=== PATIENT | male | born 1960 | race American Indian/Alaskan Native ===

== ENCOUNTER 2018-06-17 15:50 | Inpatient (IN) | payer BC, MEDICAID, MEDICARE ==
--- NOTE | 2018-06-17 16:22 | Emergency Department Report ---
ED Chest Pain HPI - General Chief Complaint: Chest Pain Stated Complaint: HEART PROBLEMS/CHEST PAIN Time Seen by Provider: 06/17/18 16:10 Source: patient Mode of arrival: Ambulatory Limitations: No Limitations - History of Present Illness Initial Comments: 57-year-old male with history of CAD, CHF presents with chest pain. Patient states he was riding in the car and had sudden onset of left-sided sharp chest pain. The pain is nonradiating, reports associated diaphoresis and shortness of breath. Denies nausea or vomiting, leg pain. Patient reports mild pedal edema. States he is compliant with his medications. Patient had last stent placed in July of this year, reports hospitalizations throughout the year for what sounds like exacerbations of congestive heart failure. Patient states he has mostly been in the hospital in [place], although he lives here in [place]. MD Complaint: chest pain -: hour(s) (1) Onset: during rest Pain Location: left chest Pain Radiation: none Severity: moderate Quality: sharp Consistency: constant Improves With: nothing Worsens With: nothing re: diaphoresis, dyspnea. denies: nausea, vomting Other Symptoms: denies: leg swelling Treatments Prior to Arrival: none - Related Data Home Medications Medication Instructions Recorded Confirmed Last Taken Clopidogrel [Plavix] 75 mg PO QDAY 03/05/15 03/14/15 03/07/15 Previous Rx's Medication Instructions Recorded Last Taken Type Carvedilol [Coreg] 25 mg PO BID #60 tablet 07/05/14 03/12/15 07:00 Rx Valsartan [Diovan] 160 mg PO BID #60 tablet 07/05/14 03/07/15 Rx oxyCODONE /ACETAMINOPHEN [Percocet 1 - 2 tab PO Q6HR PRN #20 tablet 08/26/14 08/27/14 Rx 5/325 mg] Aspirin EC [Aspirin Enteric Coated 325 mg PO QDAY tablet 03/15/15 Unknown Rx TAB] Clopidogrel [Plavix] 75 mg PO QDAY tablet 03/15/15 Unknown Rx Ezetimibe [Zetia] 10 mg PO QHS #30 tablet NS 03/15/15 Unknown Rx ISOSORBIDE MONOnitrate [Imdur ER] 30 mg PO QDAY #30 tablet NS 03/15/15 Unknown Rx Valsartan [Diovan] 160 mg PO DAILY tablet 03/15/15 Unknown Rx Allergies Allergy/AdvReac Type Severity Reaction Status Date / Time lisinopril Allergy Angioedema Verified 06/17/18 16:06 lovastatin AdvReac Swelling Verified 03/12/15 12:43 simvastatin AdvReac Swelling Verified 03/12/15 12:44 Heart Score - HEART Score History: Moderately suspicious EKG: Non-specific Age: 45-65 Risk factors: > 3 risk factors or hx of atherosclerotic disease Troponin: 1-3x normal limit HEART Score: 6 ED Review of Systems ROS: Stated complaint: HEART PROBLEMS/CHEST PAIN Other details as noted in HPI Comment: All other systems reviewed and negative Constitutional: denies: chills, fever Respiratory: shortness of breath Cardiovascular: chest pain Gastrointestinal: denies: nausea, vomiting Musculoskeletal: other (denies leg pain or swelling) ED Past Medical Hx - Past Medical History Previous Medical History?: Yes Hx Hypertension: Yes (2007 DR COLUMBA GRAHAM/PCP) Hx Heart Attack/AMI: Yes (X5) Hx Congestive Heart Failure: No Hx Diabetes: No Hx Renal Disease: No Hx Seizures: No Hx Asthma: No Hx COPD: No Hx HIV: No Additional medical history: High cholesterol. CAD - Surgical History Past Surgical History?: Yes Hx Coronary Stent: Yes (X5) - Social History Smoking Status: Never Smoker Substance Use Type: None - Medications Home Medications: Home Medications Medication Instructions Recorded Confirmed Last Taken Type Carvedilol [Coreg] 25 mg PO BID #60 tablet 07/05/14 03/14/15 03/12/15 07:00 Rx Valsartan [Diovan] 160 mg PO BID #60 tablet 07/05/14 03/14/15 03/07/15 Rx oxyCODONE /ACETAMINOPHEN [Percocet 1 - 2 tab PO Q6HR PRN #20 tablet 08/26/14 03/14/15 08/27/14 Rx 5/325 mg] Clopidogrel [Plavix] 75 mg PO QDAY 03/05/15 03/14/15 03/07/15 History Aspirin EC [Aspirin Enteric Coated 325 mg PO QDAY tablet 03/15/15 Unknown Rx TAB] Clopidogrel [Plavix] 75 mg PO QDAY tablet 03/15/15 Unknown Rx Ezetimibe [Zetia] 10 mg PO QHS #30 tablet NS 03/15/15 Unknown Rx ISOSORBIDE MONOnitrate [Imdur ER] 30 mg PO QDAY #30 tablet NS 03/15/15 Unknown Rx Valsartan [Diovan] 160 mg PO DAILY tablet 03/15/15 Unknown Rx ED Physical Exam - General Limitations: No Limitations General appearance: alert, in no apparent distress - Head Head exam: Present: atraumatic, normocephalic - Eye Eye exam: Present: normal appearance - ENT ENT exam: Present: mucous membranes moist - Neck Neck exam: Present: normal inspection - Respiratory Respiratory exam: Present: normal lung sounds bilaterally. Absent: respiratory distress - Cardiovascular Cardiovascular Exam: Present: normal rhythm, tachycardia - GI/Abdominal GI/Abdominal exam: Present: soft. Absent: distended, tenderness - Extremities Exam Extremities exam: Present: other (no lower extremity edema). Absent: calf tenderness - Neurological Exam Neurological exam: Present: alert, oriented X3 - Psychiatric Psychiatric exam: Present: normal affect, normal mood - Skin Skin exam: Present: warm, dry, intact, normal color ED Course Vital Signs 06/17/18 06/17/18 06/17/18 16:07 16:12 16:15 Temperature 97.6 F Pulse Rate 139 H 135 H Respiratory 22 20 21 Rate Blood Pressure 164/121 166/130 Blood Pressure [Left] O2 Sat by Pulse 97 98 Oximetry 06/17/18 06/17/18 06/17/18 16:24 16:25 16:26 Temperature Pulse Rate 133 H 133 H Respiratory 17 20 24 Rate Blood Pressure 166/130 166/130 Blood Pressure [Left] O2 Sat by Pulse Oximetry 06/17/18 06/17/18 06/17/18 16:27 16:28 16:29 Temperature Pulse Rate 133 H 134 H 134 H Respiratory 20 20 Rate Blood Pressure 166/130 166/130 151/118 Blood Pressure [Left] O2 Sat by Pulse Oximetry 06/17/18 06/17/18 06/17/18 16:30 16:32 16:34 Temperature Pulse Rate 135 H 137 H 137 H Respiratory 22 20 19 Rate Blood Pressure 151/118 151/118 151/118 Blood Pressure [Left] O2 Sat by Pulse Oximetry 06/17/18 06/17/18 06/17/18 16:35 16:36 16:37 Temperature Pulse Rate 136 H 138 H 135 H Respiratory 23 21 Rate Blood Pressure 131/91 131/91 131/91 Blood Pressure [Left] O2 Sat by Pulse Oximetry 06/17/18 06/17/18 06/17/18 16:38 16:40 16:42 Temperature Pulse Rate 136 H 139 H 139 H Respiratory 22 18 21 Rate Blood Pressure 131/91 131/91 131/91 Blood Pressure [Left] O2 Sat by Pulse Oximetry 06/17/18 06/17/18 06/17/18 16:44 16:45 16:46 Temperature Pulse Rate 140 H 138 H 138 H Respiratory 19 24 19 Rate Blood Pressure 131/91 140/92 140/92 Blood Pressure [Left] O2 Sat by Pulse Oximetry 06/17/18 06/17/18 06/17/18 17:00 17:15 17:52 Temperature Pulse Rate 133 H 81 88 Respiratory 15 13 Rate Blood Pressure 140/99 142/101 140/99 Blood Pressure [Left] O2 Sat by Pulse 98 100 99 Oximetry 06/17/18 06/17/18 06/17/18 18:00 18:15 18:30 Temperature Pulse Rate 86 86 87 Respiratory 25 H 22 17 Rate Blood Pressure 148/109 147/109 156/115 Blood Pressure [Left] O2 Sat by Pulse 100 99 100 Oximetry 06/17/18 06/17/18 18:45 19:15 Temperature 97.8 F Pulse Rate 85 86 Respiratory 22 18 Rate Blood Pressure 157/115 154/114 Blood Pressure 154/114 [Left] O2 Sat by Pulse 100 100 Oximetry ALICE score - Alice Score Age > 65: (0) No Aspirin use within the Past 7 Days: (1) Yes 3 or more CAD Risk Factors: (1) Yes 2 or more Angina events in past 24 hrs: (1) Yes Known CAD with more than 50% Stenosis: (1) Yes Elevated Cardiac Markers: (0) No ST Deviation Greater than 0.5mm: (0) No ALICE Score: 4 ED Medical Decision Making - Lab Data Result diagrams: 06/17/18 16:20 06/17/18 16:20 - EKG Data EKG shows normal: sinus rhythm, axis, QRS complexes Rate: tachycardia - EKG Data When compared to previous EKG there are: no significant change (compared to 02/2015) Interpretation: LVH, other (prolonged QT, T wave inversions laterally) - Radiology Data Radiology results: report reviewed, image reviewed - Medical Decision Making 57-year-old male with history of CAD presented to ED with chest pain. Initially tachycardic into the 130s. EKG did not show any evidence of STEMI. Patient had T-wave inversions in lateral leads, which is consistent with past EKGs. Troponin normal. Due to chest pain and tachycardia, CTA was obtained, will wish to not show any sign of PE or aortic pathology. Chest pain improved with sublingual nitroglycerin, heart rate also improved as well being given an small fluid bolus of 250 mL and small dose of morphine. Patient feeling much better at this time. Will admit for further chest pain workup to the hospitalist. - Differential Diagnosis ACS, PE, aortic dissection Critical care attestation.: If time is entered above; I have spent that time in minutes in the direct care of this critically ill patient, excluding procedure time. ED Disposition Clinical Impression: Chest pain, Unstable angina Disposition: OP ADMIT IP TO THIS HOSP Is pt being admited?: Yes Condition: Stable Time of Disposition: 18:22
[2018-06-17] MEDS ORDERED: ASPIRIN PO ONE (16:23)
[2018-06-17] MEDS: NITROSTAT SL PRN ×3 (16:27→16:37)
[2018-06-17] MEDS ORDERED: NACL 0.9% 250ML 250 ML ONE (16:41)
[2018-06-17] MEDS ORDERED: NACL 0.9% 500 ML 250 ML IV ONE (16:43)
[2018-06-17 16:56] LABS: Basophils # (Auto) 0.1 K/mm3 (0.0-0.1); Basophils % (Auto) 1.5 % (0.0-1.8); Eosinophils # (Auto) 0.1 K/mm3 (0.0-0.4); Eosinophils % (Auto) 1.6 % (0.0-4.3); Lymphocytes # (Auto) 2.1 K/mm3 (1.2-5.4); Mean Corpuscular HGB Conc 31 % (32-34); Monocytes # (Auto) 0.7 K/mm3 (0.0-0.8); Platelet Count 309 K/mm3 (140-440); Red Blood Count 6.76 M/mm3 (3.65-5.03)
[2018-06-17 16:59] LABS: Hematocrit 41.9 % (35.5-45.6); Hemoglobin 12.8 gm/dl (11.8-15.2); Mean Corpuscular Hemoglobin 19 pg (28-32); Mean Corpuscular Volume 62 fl (84-94); Red Cell Distribution Width 21.5 % (13.2-15.2)
[2018-06-17] MEDS ORDERED: MORPHINE IV ONE (16:59)
[2018-06-17] MEDS ORDERED: MORPHINE ONE (16:59)
[2018-06-17 17:02] LABS: BUN/Creatinine Ratio 17; Blood Urea Nitrogen 19 mg/dL (9-20); Calcium 9.4 mg/dL (8.4-10.2); Hemolysis Index 26
[2018-06-17 17:06] LABS: INR 1.03 (0.87-1.13); Partial Thromboplastin Time 24.7 Sec. (24.2-36.6)
--- NOTE | 2018-06-17 17:07 | XRay Report ---
FINAL REPORT PROCEDURE: XR CHEST 1V AP TECHNIQUE: Chest radiograph anteroposterior view. CPT 41453 HISTORY: chest pain COMPARISON: No prior studies are available for comparison. FINDINGS: Heart: Cardiac size is mildly enlarged. Mediastinum/Vessels: Mild degree pulmonary venous congestion is noted. Lungs/Pleural space: Lungs are hyperinflated. A hazy density is noted involving the right middle lobe obscuring the right cardiac border. There is blunting of right costophrenic angle. Bony thorax: No acute osseous abnormality. Life support devices: None. IMPRESSION: Mild degree pulmonary venous congestion Mild cardiomegaly Hazy density right middle lobe may represent a atelectasis versus scarring. A two view chest study is recommended to rule out any areas of consolidation. Blunting of right costophrenic angle may be secondary to minimal pleural effusion versus pleural scar ring. Comparison with any prior studies would be of help..
--- NOTE | 2018-06-17 18:15 | History and Physical Report ---
History of Present Illness Chief complaint: My chest hurts History of present illness: 57 YO Male with CAD S/P Stent placement, Systolic CHF(EF 20%), Obesity, HLD, NM, HTN presents to ED for evaluation. Pt states that he has experienced sudden onset pain localized to his left chest while riding in his car. Pt states that pain is 6/10, substernal, sharp, constant, nonradiating, nonradiating, associated with diaphoresis and shortness of breath, not worsened with exertion, not relieved with rest. Pt transported to [facility] care and evaluation. Pt seen and evaluated in ED and found to have symptoms consistent with ACS, as well as CHF Decompensation. Pt admitted to telemetry. Cardiology consulted in ED. Past History Past Medical History: acute NM, heart failure, hypertension, hyperlipidemia, other (Obesity) Past Surgical History: Other (Cardiac Stent) Social history: , lives with family. denies: smoking, alcohol abuse, prescription drug abuse Family history: CAD, hypertension Medications and Allergies Allergies Allergy/AdvReac Type Severity Reaction Status Date / Time lisinopril Allergy Angioedema Verified 06/17/18 16:06 lovastatin AdvReac Swelling Verified 03/12/15 12:43 simvastatin AdvReac Swelling Verified 03/12/15 12:44 Home Medications Medication Instructions Recorded Confirmed Last Taken Type Carvedilol [Coreg] 25 mg PO BID #60 tablet 07/05/14 03/14/15 03/12/15 07:00 Rx Valsartan [Diovan] 160 mg PO BID #60 tablet 07/05/14 03/14/15 03/07/15 Rx oxyCODONE /ACETAMINOPHEN [Percocet 1 - 2 tab PO Q6HR PRN #20 tablet 08/26/14 03/14/15 08/27/14 Rx 5/325 mg] Clopidogrel [Plavix] 75 mg PO QDAY 03/05/15 03/14/15 03/07/15 History Aspirin EC [Aspirin Enteric Coated 325 mg PO QDAY tablet 03/15/15 Unknown Rx TAB] Clopidogrel [Plavix] 75 mg PO QDAY tablet 03/15/15 Unknown Rx Ezetimibe [Zetia] 10 mg PO QHS #30 tablet NS 03/15/15 Unknown Rx ISOSORBIDE MONOnitrate [Imdur ER] 30 mg PO QDAY #30 tablet NS 03/15/15 Unknown Rx Valsartan [Diovan] 160 mg PO DAILY tablet 03/15/15 Unknown Rx Active Meds: Active Medications Nitroglycerin (Nitrostat) 0.4 mg SL .Q5MIN PRN PRN Reason: Chest Pain Last Admin: 06/17/18 16:37 Dose: 0.4 mg Documented by: Review of Systems Constitutional: no weight loss, no weight gain, no fever, no chills Ears, nose, mouth and throat: no ear pain, no ear discharge, no tinnitis, no decreased hearing, no nose pain, no nasal congestion, no nasal discharge Cardiovascular: chest pain Respiratory: no cough, no cough with sputum, no excessive sputum Gastrointestinal: no abdominal pain, no nausea, no diarrhea, no constipation, no change in bowel habits Genitourinary Male: no hematuria, no flank pain, no discharge, no urinary frequency Rectal: no pain, no incontinence, no bleeding Musculoskeletal: no neck stiffness, no neck pain, no shooting arm pain, no arm numbness/tingling, no low back pain, no shooting leg pain Integumentary: no rash, no pruritis, no redness, no sores, no wounds, no jaundice Neurological: no transient paralysis, no paralysis, no weakness, no numbness, no tingling, no seizures, no syncope, no tremors Psychiatric: no anxiety, no memory loss, no change in sleep habits, no sleep disturbances, no insomnia, no hypersomnia, no change in libido Endocrine: no cold intolerance, no heat intolerance, no polyphagia, no polydipsia, no polyuria, no nocturia, no excessive sweating Hematologic/Lymphatic: no easy bruising, no easy bleeding, no lymphadenopathy, no lymphedema Allergic/Immunologic: no urticaria, no allergic rhinitis, no wheezing, no persistent infections, no anaphylaxis Exam - Constitutional Vitals: Temp Pulse Resp BP Pulse Ox 97.6 F 86 25 H 148/109 100 06/17/18 16:07 06/17/18 18:00 06/17/18 18:00 06/17/18 18:00 06/17/18 18:00 General appearance: Present: mild distress - EENT Eyes: Present: PERRL ENT: hearing intact, clear oral mucosa - Neck Neck: Present: supple, normal ROM - Respiratory Respiratory effort: normal Respiratory: bilateral: CTA - Cardiovascular Heart Sounds: Present: S1 & S2. Absent: rub, click - Extremities Extremities: pulses symmetrical, No edema Peripheral Pulses: within normal limits - Abdominal General gastrointestinal: Present: soft, non-tender, non-distended, normal bowel sounds Male genitourinary: Present: normal - Integumentary Integumentary: Present: clear, warm, dry - Musculoskeletal Musculoskeletal: gait normal, strength equal bilaterally - Psychiatric Psychiatric: appropriate mood/affect, intact judgment & insight - Neurologic Neurologic: CNII-XII intact, moves all extremities Results - Labs CBC & Chem 7: 06/17/18 16:20 06/17/18 16:20 Labs: Abnormal lab results 06/17/18 06/17/18 06/17/18 Range/Units 16:20 16:20 16:20 RBC 6.76 H (3.65-5.03) M/mm3 MCV 62 L (84-94) fl MCH 19 L (28-32) pg MCHC 31 L (32-34) % RDW 21.5 H (13.2-15.2) % [place] % (Auto) 9.0 H (0.0-7.3) % Glucose 103 H (75-100) mg/dL NT-Pro-B Natriuret Pep 1598 H (0-900) pg/mL Assessment and Plan - Patient Problems (1) ACS (acute coronary syndrome) Current Visit: Yes Status: Acute Plan to address problem: Serial cardiac enzymes, EKG, telemetry, morphine, supplemental oxygen, nitro, aspirin, cardiology consulted, (2) CHF (congestive heart failure) Current Visit: Yes Status: Acute Qualifiers: Heart failure type: systolic Heart failure chronicity: acute on chronic Qualified Code(s): I50.23 - Acute on chronic systolic (congestive) heart failure Plan to address problem: Admit to telemetry, Echo, strict I/O, daily weight, monitor uop q shift, chext x ray, bnp, d dimer, supplemental oxygen, pulse oximetry, thyroid panel (3) Coronary artery disease Current Visit: No Status: Acute Qualifiers: Coronary Disease-Associated Artery/Lesion type: [place] artery Associated angina: with stable angina Plan to address problem: Admit to telemetry, DAPT, Risk factor reduction (4) DVT prophylaxis Current Visit: No Status: Acute Plan to address problem: SCD to BLE while in bed.
[2018-06-17] MEDS ORDERED: ZOFRAN IV PRN (18:27)
[2018-06-17] MEDS ORDERED: PROVENTIL IH PRN (18:27)
[2018-06-17] MEDS ORDERED: TYLENOL PO PRN (18:27)
[2018-06-17] MEDS ORDERED: BABY ASPIRIN PO STA (18:27)
[2018-06-17] MEDS ORDERED: SODIUM CHLORIDE FLUSH SYRINGE 10 ML IV PRN ×2 (18:27)
[2018-06-17] MEDS ORDERED: PERCOCET 5/325 PO PRN (18:29)
--- NOTE | 2018-06-17 18:41 | Cat Scan Report ---
FINAL REPORT EXAM: CT ANGIO CHEST HISTORY: chest pain TECHNIQUE: CT chest CT angiogram with reconstructions PRIORS: None. FINDINGS: There is no evidence of filling defect within the central pulmonary vasculature to suggest the presen ce of acute pulmonary embolus. No evidence of mediastinal pathologic lymph node enlargement Heart and great vessels are unremarkable. The aorta is normal in caliber. There is focal atelectasis at the right lung base and with areas of linear scarring present. No pleur al fluid collection seen. No acute pulmonary abnormality noted. Visualized portion of the upper abdomen demonstrates no acute change. IMPRESSION: Negative. No CT evidence of acute pulmonary embolus
[2018-06-17 19:22] LABS: Free T4 (Free Thyroxine) 1.07 ng/dL (0.76-1.46)
[2018-06-17 20:10] LABS: Chol/HDL Ratio 6.21 %
[2018-06-17] MEDS: COREG PO SCH (22:40)
[2018-06-17] MEDS: ZETIA PO SCH (22:40)
[2018-06-17] MEDS: SODIUM CHLORIDE FLUSH SYRINGE 10 ML IV SCH (22:41)
[2018-06-18] MEDS ORDERED: LASIX PO SCH (06:00)
[2018-06-18] MEDS: IMDUR PO SCH (09:16)
[2018-06-18] MEDS: COREG PO SCH ×2 (09:16→21:38)
[2018-06-18] MEDS: SODIUM CHLORIDE FLUSH SYRINGE 10 ML IV SCH ×2 (09:17→21:38)
[2018-06-18] MEDS: PLAVIX PO SCH (09:17)
[2018-06-18] MEDS ORDERED: ECOTRIN PO SCH (10:00)
[2018-06-18] MEDS ORDERED: AFLURIA QUAD 2018-2019 SYRINGE IM ONE (12:00)
--- NOTE | 2018-06-18 12:36 | Consultation ---
History of Present Illness Consult date: 06/18/18 Consult reason: chest pain History of present illness: The patient's a 57-year-old man with coronary artery disease. He has coronary stents in both the circumflex and right coronary arteries. Three years ago in February 2015, he suffered an acute inferior ST elevation myocardial infarction, immediately following elective left wrist surgery. Findings on cardiac catheterization was late stent thrombosis of a drug-eluting stent that had been implanted 2 years earlier. For the wrist surgery there was a temporary five-day interruption of his oral antiplatelet therapy. The patient did well with primary angioplasty and implantation of serial 3.0-3.5 mm bare metal stents. Since then, he has mostly lived in [place], [facility] that a year ago a right radial catheterization was performed that demonstrated no additional l esions, and in July of this year he also had a stress test that he reports was negative. He presents to the hospital now with nonexertional somewhat atypical chest pain, was seen in the emergency room and referred for admission. EKG is normal sinus rhythm with left ventricular hypertrophy and nonspecific ST and T-wave abnormalities. Troponin level is insignificant at 0.03. Chest x-ray was negative. Past History Past Medical History: acute MS, CAD, heart failure, hypertension, hyperlipidemia, other (Obesity) Past Surgical History: PTCA, Other (Cardiac Stent) Social history: , lives with family. denies: smoking, alcohol abuse, prescription drug abuse Family history: CAD, hypertension Medications and Allergies Allergies Allergy/AdvReac Type Severity Reaction Status Date / Time lisinopril Allergy Angioedema Verified 06/17/18 16:06 lovastatin AdvReac Swelling Verified 03/12/15 12:43 simvastatin AdvReac Swelling Verified 03/12/15 12:44 Home Medications Medication Instructions Recorded Confirmed Last Taken Type Carvedilol [Coreg] 25 mg PO BID #60 tablet 07/05/14 03/14/15 03/12/15 07:00 Rx Valsartan [Diovan] 160 mg PO BID #60 tablet 07/05/14 03/14/15 03/07/15 Rx oxyCODONE /ACETAMINOPHEN [Percocet 1 - 2 tab PO Q6HR PRN #20 tablet 08/26/14 03/14/15 08/27/14 Rx 5/325 mg] Clopidogrel [Plavix] 75 mg PO QDAY 03/05/15 03/14/1515 History Aspirin EC [Aspirin Enteric Coated 325 mg PO QDAY tablet 03/15/15 Unknown Rx TAB] Clopidogrel [Plavix] 75 mg PO QDAY tablet 03/15/15 Unknown Rx Ezetimibe [Zetia] 10 mg PO QHS #30 tablet NS 03/15/15 Unknown Rx ISOSORBIDE MONOnitrate [Imdur ER] 30 mg PO QDAY #30 tablet NS 03/15/15 Unknown Rx Valsartan [Diovan] 160 mg PO DAILY tablet 03/15/15 Unknown Rx Active Meds: Active Medications Acetaminophen (Tylenol) 650 mg PO Q4H PRN PRN Reason: Pain MILD(1-3)/Fever >100.5/RUIZ Albuterol (Proventil) 2.5 mg IH Q4HRT PRN PRN Reason: Shortness Of Breath Aspirin (Ecotrin) 325 mg PO QDAY [facility] Last Admin: 06/18/18 09:17 Dose: 325 mg Documented by: Carvedilol (Coreg) 25 mg PO BID [facility] Last Admin: 06/18/18 09:16 Dose: 25 mg Documented by: Clopidogrel Bisulfate (Plavix) 75 mg PO QDAY [facility] Last Admin: 06/18/18 09:17 Dose: 75 mg Documented by: Ezetimibe (Zetia) 10 mg PO QHS [facility] Last Admin: 06/17/18 22:40 Dose: 10 mg Documented by: Isosorbide Mononitrate (Imdur) 30 mg PO QDAY [facility] Last Admin: 06/18/18 09:16 Dose: 30 mg Documented by: Nitroglycerin (Nitrostat) 0.4 mg SL .Q5MIN PRN PRN Reason: Chest Pain Last Admin: 06/17/18 16:37 Dose: 0.4 mg Documented by: Ondansetron HCl (Zofran) 4 mg IV Q8H PRN PRN Reason: Nausea And Vomiting Oxycodone/Acetaminophen (Percocet 5/325) 1 tab PO Q6HR PRN PRN Reason: Pain Sodium Chloride (Sodium Chloride Flush Syringe 10 Ml) 10 ml IV BID [facility] Last Admin: 06/18/18 09:17 Dose: 10 ml Documented by: Sodium Chloride (Sodium Chloride Flush Syringe 10 Ml) 10 ml IV PRN PRN PRN Reason: LINE FLUSH Sodium Chloride (Sodium Chloride Flush Syringe 10 Ml) 10 ml IV PRN PRN PRN Reason: LINE FLUSH Review of Systems Cardiovascular: chest pain, shortness of breath, no orthopnea, no palpitations, no rapid/irregular heart beat, no edema, no syncope, no lightheadedness Physical Examination Vital Signs Temp Pulse Resp BP Pulse Ox 97.6 F 139 H 22 164/121 97 06/17/18 16:07 06/17/18 16:07 06/17/18 16:07 06/17/18 16:07 06/17/18 16:07 General appearance: no acute distress HEENT: Positive: PERRL Neck: Positive: neck supple Cardiac: Positive: Reg Rate and Rhythm Lungs: Positive: Decreased Breath Sounds Neuro: Positive: Grossly Intact Abdomen: Positive: Soft Male genitourinary: Positive: deferred Skin: Positive: Clear Extremities: Absent: edema Results 06/17/18 16:20 06/17/18 16:20 Coagulation 06/17/18 Range/Units 16:20 PT 13.9 (12.2-14.9) Sec. INR 1.03 (0.87-1.13) APTT 24.7 (24.2-36.6) Sec. Lipids 06/17/18 Range/Units 19:11 Triglycerides 165 H (2-149) mg/dL Cholesterol 255 H (50-199) mg/dL HDL Cholesterol 41 (40-59) mg/dL Cholesterol/HDL Ratio 6.21 % CBC 06/17/18 Range/Units 16:20 WBC 7.4 (4.5-11.0) K/mm3 RBC 6.76 H (3.65-5.03) M/mm3 Hgb 12.8 (11.8-15.2) gm/dl Hct 41.9 (35.5-45.6) % Plt Count 309 (140-440) K/mm3 Lymph # 2.1 (1.2-5.4) K/mm3 [place] # 0.7 (0.0-0.8) K/mm3 Eos # 0.1 (0.0-0.4) K/mm3 Baso # 0.1 (0.0-0.1) K/mm3 Comprehensive Metabolic Panel 06/17/18 Range/Units 16:20 Sodium 141 (137-145) mmol/L Potassium 3.6 (3.6-5.0) mmol/L Chloride 99.8 (98-107) mmol/L Carbon Dioxide 25 (22-30) mmol/L BUN 19 (9-20) mg/dL Creatinine 1.1 (0.8-1.5) mg/dL Glucose 103 H (75-100) mg/dL Calcium 9.4 (8.4-10.2) mg/dL EKG interpretations - Telemetry EKG Rhythm: Sinus Rhythm Assessment and Plan - Patient Problems (1) Chest pain Current Visit: Yes Status: Acute Plan to address problem: Chest pain in a patient with a history of complex multivessel coronary artery disease. We will optimize medical therapy, and plan a thallium stress test for further assessment. Echocardiogram will be done for left ventricular function and valvular function assessment.
[2018-06-18] MEDS: ALDACTONE PO SCH (15:47)
[2018-06-18] MEDS: ELIQUIS PO SCH ×2 (15:47→21:38)
[2018-06-18] MEDS: COZAAR PO SCH (15:47)
--- NOTE | 2018-06-18 18:19 | Progress Note ---
Assessment and Plan Assessment and Plan - Patient Problems (1) ACS (acute coronary syndrome) Current Visit: Yes Status: Acute Plan to address problem: Stents in the past For stress thallium on 06/19/2018 (2) CHF (congestive heart failure) Current Visit: Yes Status: Acute Qualifiers: Heart failure type: systolic Heart failure chronicity: acute on chronic Qualified Code(s): I50.23 - Acute on chronic systolic (congestive) heart failure Plan to address problem: Echo showed a severe 4-chamber dilated cardiomyopathy, EF 10-15%. (3) atrial flutter Transient episode of rapid atrial flutter yesterday, BUT now back in NSR. Will ultimately need AF supression and oral anticoagulation. (4) Coronary artery disease Current Visit: No Status: Acute Qualifiers: Coronary Disease-Associated Artery/Lesion type: [place] artery Associated angina: with stable angina Plan to address problem: Stents in the past (5) DVT prophylaxis Current Visit: No Status: Acute Plan to address problem: SCD to BLE while in bed. Subjective Date of service: 06/18/18 Principal diagnosis: chest pain and CHF exacerbation Interval history: Chest pain is better and shortness of breath is better Objective - Constitutional Vitals: Vital Signs - 12hr 06/18/18 06/18/18 06/18/18 07:44 10:00 15:27 Temperature 97.9 F 97.4 F L Pulse Rate 72 67 Respiratory 18 17 Rate Blood Pressure 137/99 123/83 O2 Sat by Pulse 100 98 100 Oximetry - Labs CBC & Chem 7: 06/17/18 16:20 06/17/18 16:20 Labs: Abnormal lab results 06/17/18 06/17/18 Range/Units 19:11 21:44 Troponin T 0.036 H D 0.043 H (0.00-0.029) ng/mL Triglycerides 165 H (2-149) mg/dL Cholesterol 255 H (50-199) mg/dL LDL Cholesterol Direct 212 H (50-130) mg/dL
[2018-06-18] MEDS: ZETIA PO SCH (21:37)
[2018-06-19] MEDS ORDERED: LEXISCAN IV ONE ×3 (08:24→10:47)
[2018-06-19] MEDS: PLAVIX PO SCH (10:28)
[2018-06-19] MEDS: ELIQUIS PO SCH (10:28)
[2018-06-19] MEDS: COREG PO SCH (10:30)
[2018-06-19] MEDS: ALDACTONE PO SCH (10:30)
[2018-06-19] MEDS: IMDUR PO SCH (10:30)
[2018-06-19] MEDS: COZAAR PO SCH (10:31)
[2018-06-19] MEDS: SODIUM CHLORIDE FLUSH SYRINGE 10 ML IV SCH (10:31)
[2018-06-19 10:32] VITALS: BP 124/86
--- NOTE | 2018-06-19 14:07 | Progress Note ---
Assessment and Plan - Patient Problems (1) Chest pain Current Visit: Yes Status: Acute Subjective Date of service: 06/19/18 Principal diagnosis: chest pain and CHF exacerbation Interval history: Patient had a Lexiscan thallium stress test, reveals a severe dilated cardiomyopathy, large predominantly fixed inferolateral defect, mild reversible ischemia. His major cardiac problem is the severe cardiomyopathy and systolic heart failure. We will continue aggressive medical management. Objective Vital Signs Temp Pulse Resp Resp Resp BP Pulse Ox 06/19/18 10:31 70 124/86 06/19/18 10:30 70 124/86 06/19/18 10:00 82 20 20 06/19/18 09:07 74 146/99 06/19/18 09:06 75 140/93 06/19/18 09:05 75 137/99 06/19/18 09:04 76 140/84 06/19/18 09:03 81 121/84 06/19/18 08:42 64 129/84 06/19/18 03:51 98.6 F 71 18 123/87 99 06/18/18 22:58 98.6 F 76 18 119/80 99 06/18/18 22:00 71 06/18/18 21:38 70 129/84 06/18/18 19:41 98.5 F 71 16 129/84 100 06/18/18 15:27 97.4 F L 67 17 123/83 100 - Physical Examination HEENT: Positive: PERRL Neck: Positive: neck supple Neuro: Positive: Grossly Intact Abdomen: Positive: Soft Skin: Positive: Clear Extremities: Absent: edema
[2018-06-19] MEDS ORDERED: VANCOMYCIN/NS 1 GM/250 ML 1 GM/250 ML BAG IV ONE (15:00)
--- NOTE | 2018-06-19 17:26 | Discharge Summary ---
Providers - Providers Date of Admission: 06/17/18 18:37 Date of discharge: 06/19/18 Attending physician: PATRICIA MARQUEZ 06/17/18 Consult to Cardiac Rehabilitation [CONS] Routine Reason For Exam: Phase I 06/17/18 18:27 Consult to Cardiology [CONS] Routine Consulting Provider: GAURANG ARIAS Reason For Exam: acs Primary care physician: [employer] Hospitalization Condition: Stable Hospital course: - Patient Problems (1) ACS (acute coronary syndrome) Current Visit: Yes Status: Acute Plan to address problem: Stents in the past Patient had a Lexiscan thallium stress test, reveals a severe dilated cardiomyopathy, large predominantly fixed inferolateral defect, mild reversible ischemia. His major cardiac problem is the severe cardiomyopathy and systolic heart failure. We will continue aggressive medical management. (2) CHF (congestive heart failure) Current Visit: Yes Status: Acute Qualifiers: Heart failure type: systolic Heart failure chronicity: acute on chronic Qualified Code(s): I50.23 - Acute on chronic systolic (congestive) heart failure Plan to address problem: Echo showed a severe 4-chamber dilated cardiomyopathy, EF 10-15%. (3) atrial flutter Transient episode of rapid atrial flutter yesterday, BUT now back in NSR. Will ultimately need AF supression and oral anticoagulation. (4) Coronary artery disease Current Visit: No Status: Acute Qualifiers: Coronary Disease-Associated Artery/Lesion type: [place] artery Associated angina: with stable angina Plan to address problem: Stents in the past Disposition: DC-01 TO HOME OR SELFCARE Core Measure Documentation - Palliative Care Palliative Care/ Comfort Measures: Not Applicable - Core Measures Any of the following diagnoses?: heart failure - Heart Failure Discharge Requirements ZEHRA/ARB for LVSD if EF <40%: Yes Beta viviana at discharge: Yes Exam - Constitutional Vitals: Temp Pulse Resp BP Pulse Ox 98.6 F 70 20 124/86 98 06/19/18 03:51 06/19/18 10:31 06/19/18 10:00 06/19/18 10:31 06/19/18 10:00 General appearance: Present: no acute distress, well-nourished - EENT Eyes: Present: PERRL ENT: hearing intact, clear oral mucosa - Neck Neck: Present: supple, normal ROM - Respiratory Respiratory effort: normal Respiratory: bilateral: CTA - Cardiovascular Heart rate: 78 Rhythm: regular Heart Sounds: Present: S1 & S2. Absent: rub, click - Extremities Extremities: pulses symmetrical, No edema Peripheral Pulses: within normal limits - Abdominal General gastrointestinal: Present: soft, non-tender, non-distended, normal bowel sounds Male genitourinary: Present: normal - Integumentary Integumentary: Present: clear, warm, dry - Musculoskeletal Musculoskeletal: gait normal, strength equal bilaterally - Psychiatric Psychiatric: appropriate mood/affect, intact judgment & insight - Neurologic Neurologic: CNII-XII intact, moves all extremities Plan Activity: no restrictions Diet: low fat, low cholesterol, low salt Follow up with: PRIMARY CAREMD [Primary Care Provider] - 3-5 Days GAURANG ARIAS MD [Staff Physician] - 7 Days
[2018-06-19] MEDS ORDERED: LASIX IV SCH (18:00)
--- NOTE | 2018-06-19 20:45 | Treadmill Report ---
THALLIUM STRESS TEST LEFT VENTRICLE: Left ventricle is severely dilated. There is a large, predominantly fixed inferior and lateral wall defect. On the resting study, there is a mild degree of reversibility. Gated analysis demonstrates severe left ventricular systolic dysfunction with ejection fraction calculated at 26%. CONCLUSION: Evidence of a severe dilated cardiomyopathy with severe left ventricular systolic dysfunction. There is also evidence of a large prior inferior and lateral myocardial infarction, with a mild degree of reversible periinfarct ischemia. Clinical correlation is recommended. JOB# [id number] CA/NTS
== END 2018-06-19 18:35 | disposition home or self-care (01) | DRG 302 ==
LOC: ED 15:50 → 4A 18:37
PROVIDERS: ADMIT Internal Medicine; ATTEND Internal Medicine
DX: I25.118 Atherosclerotic heart disease of native coronary artery with other forms of angina pectoris (principal); I50.23 Acute on chronic systolic (congestive) heart failure; I48.92 Unspecified atrial flutter; I11.0 Hypertensive heart disease with heart failure; I42.0 Dilated cardiomyopathy; E66.9 Obesity, unspecified; Z95.5 Presence of coronary angioplasty implant and graft; I25.2 Old myocardial infarction; Z68.39 Body mass index [BMI] 39.0-39.9, adult; Z82.49 Family history of ischemic heart disease and other diseases of the circulatory system; Z79.82 Long term (current) use of aspirin; Z79.899 Other long term (current) drug therapy
CPT/HCPCS: 36415; 71045; 71275; 78452; 80048; 80061; 83880; 84439; 84443; 84484; 85025; 85379; 85610; 85730; 90686; 93005; 93010; 93017; 93306; 94760; G0378; A9502; J2270; J2785; J7050; Q9967